=== PATIENT | female | born 1985 | race Caucasian/White ===

== ENCOUNTER → 2023-08-01 12:08 | Outpatient (REF) | payer BC, SELFPAY | LOC: MRI 3T 12:08 | PROVIDERS: ATTENDING PHYSICIAN Orthopaedic Surgery; FAMILY PHYSICIAN Family Medicine | DX: M67.431 Ganglion, right wrist (principal); M65.321 Trigger finger, right index finger | CPT/HCPCS: 73218; 73221 ==